=== PATIENT | female | born 1950 ===

== ENCOUNTER 2025-08-06 08:42 | Outpatient (CLI) | payer OTHER ==
[2025-08-06 10:31] LABS: BASO % 0.4 % (0.1-1.2); EOS # 0.10 (0.04-0.54); EOS % 1.4 % (0.7-7.0); LYMPH # 1.45 (1.18-3.74); LYMPH % 19.8 % (19.3-53.1); MEAN PLATELET VOLUME 10.90 fl (9.4-12.4); MONO # 0.64 (0.24-0.82); MONO % 8.7 % (4.7-12.5); NEUT # 5.08 (1.56-6.13); NEUT % 69.4 % (34.0-71.1); RED CELL DISTRIBUTION WIDTH 13.3 % (11.6-14.4)
[2025-08-06 10:45] LABS: URINE APPEARANCE Clear; URINE BILIRRUBIN Negative (NEGATIVE); URINE BLOOD Negative; URINE COLOR Yellow; URINE LEUKOCYTE Negative; URINE NITRATE Negative; URINE PROTEIN Negative (NEGATIVE); URINE UROBILINOGEN 0.2 E.U./dl
[2025-08-06 10:47] LABS: URINE BACTERIA 112.0 uL (0.0-1933); URINE EPITHELIAL CELLS 4.7 uL (0.0-38.8); URINE WBC 3.9 uL (0.0-23.2)
[2025-08-06 11:05] LABS: INR 0.98
[2025-08-06 11:26] LABS: COL EPI 118 SECONDS (82-175)
[2025-08-06 11:42] LABS: URINE CAST 0.28 uL (0.0-1.40); URINE GLUCOSE >=1000 MG/DL (NEGATIVE); URINE KETONE >=160 (NEGATIVE); URINE RBC 1.6 uL (0.0-20.8)
[2025-08-06 11:56] LABS: ALT/SGPT 21.0 U/L (12-78); AST/SGOT 7.0 U/L (15-37); BILIRUBIN TOTAL 0.8 mg/dL (0.3-1.2); BUN CREA RATIO 28.0 (7.0-25.0); CREATININE SERUM 0.46 mg/dL (0.55-1.02); GFR 132.79; GLOBULINA 3.9 G/DL (2.4-3.5); GLUCOSE FASTING 139.0 mg/dL (65-100); OSMOLALITY SERUM 278.0 MOSM/KG (275-295)
== END 2025-08-06 23:00 | disposition home or self-care (01) ==
LOC: RAD 08:42
PROVIDERS: ATTEND Orthopaedic Surgery
DX: D64.9 Anemia, unspecified (principal); E88.9 Metabolic disorder, unspecified; D68.8 Other specified coagulation defects; N39.0 Urinary tract infection, site not specified; Z22.322 Carrier or suspected carrier of Methicillin resistant Staphylococcus aureus; E11.9 Type 2 diabetes mellitus without complications; Z76.89 Persons encountering health services in other specified circumstances; I10 Essential (primary) hypertension

== ENCOUNTER 2025-08-07 10:53 | Outpatient (CLI) | payer OTHER | END 2025-08-07 11:12 | disposition home or self-care (01) | LOC: RAD 10:53 | PROVIDERS: ATTEND Orthopaedic Surgery | DX: M79.672 Pain in left foot (principal) ==

== ENCOUNTER 2025-08-12 07:03 | Day surgery (SDC) | payer OTHER ==
[2025-08-12] MEDS ORDERED: CEFAZOLIN SODIUM 1,000 MG VIAL ONE (07:55)
[2025-08-12] MEDS ORDERED: BUPIVACAINE HCL/MPF 0.5% 30ML VIAL ONE (09:58)
[2025-08-12] MEDS ORDERED: POVIDONE-IODINE 118 ML BOTT TOP ONE (09:58)
[2025-08-12] MEDS ORDERED: LIDOCAINE HCL 1%/EPINEPHRINE 20ML VIAL IJ ONE (09:58)
[2025-08-12] MEDS ORDERED: KETOROLAC TROMETHAMINE 60 MG VIAL IM ONE (10:09)
[2025-08-12] MEDS ORDERED: ACETAMINOPHEN 500 MG GEL..CAP PO ONE (15:06)
== END 2025-08-12 17:15 | disposition home or self-care (01) ==
LOC: CIR.AMB 07:03
PROVIDERS: ATTEND Orthopaedic Surgery
DX: S82.851A Displaced trimalleolar fracture of right lower leg, initial encounter for closed fracture (principal)
CPT/HCPCS: 27822; L8699